=== PATIENT | male | born 1975 | race Caucasian/White ===

== ENCOUNTER 2017-09-13 21:04 | Emergency (ER) | payer BC ==
[~2017-09-13] VITALS: Ht 180.3 cm; Wt 97.3 kg
[~2017-09-13 21:04] MED LIST: BUPR-83 PO; LAMO200T35 PO; SERT-234 PO
[2017-09-13 21:11] VITALS: TEMP 36.3; Ht 180.3 cm; Wt 97.3 kg
[2017-09-13] MEDS ORDERED: DIPHTHERIA/TETANUS/PERTUSSIS 0.5 ML SYR/VIAL IM. ONE (21:30)
[2017-09-13] MEDS ORDERED: AMOXICIL/CLAVU 875MG HOME PACK PO ONE (21:30)
[2017-09-13] MEDS ORDERED: AMOX875T PO (21:56)
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
[2017-09-13 22:04] VITALS: BP 122/57; PULSE 70; O2SAT 97
== END 2017-09-13 22:06 | disposition home or self-care (01) ==
LOC: C.EDB 21:05 → C.EDC 22:06
DX: S61.252A Open bite of right middle finger without damage to nail, initial encounter (principal); W55.01XA Bitten by cat, initial encounter; Z23 Encounter for immunization

== ENCOUNTER 2019-06-18 18:43 | Observation (INO) ==
[2019-06-18] MEDS ORDERED: diazePAM 5 MG TABLET PO ONE (19:17)
[2019-06-18] MEDS ORDERED: DEXAMETHASONE **PF** INJ 10 MG/ML VIAL IV ONE (19:17)
[2019-06-18] MEDS ORDERED: ACETAMINOPHEN 1,000 MG/100 ML VIAL IV STA (19:17)
[2019-06-18] MEDS ORDERED: KETOROLAC TROMETHAMINE 15 MG/ML VIAL IV STA (19:17)
[2019-06-18] MEDS ORDERED: SODIUM CHLORIDE 0.9% 1000ML 1,000 ML IV ONE (19:17)
[2019-06-18] MEDS ORDERED: MoRPHine SULFATE 10 MG/ML CARP/VIAL IV STA (20:10)
--- NOTE | 2019-06-18 21:01 | Emergency Department Note ---
Entered by Neelam Trivedi acting as a scribe for History of Present Illness General Chief complaint: Back Injury/Pain Stated complaint: BACK PAIN Time Seen by Provider: 06/18/19 18:47 Source: patient History of Present Illness Onset (ago): hour(s) (2.5) Location: back Pain Consistency: + other (episode) Maximum Pain Intensity: 10 Relieved By: + rest (right leg straight, left leg bent) and + other (Fentanyl); not by medication (Tramadol) Exacerbated By: + movement Associated symptoms: + denies other symptoms (numbness, tingling, urinary retention, bowel incontinence) The patient is a 43 year old male who presents to the Emergency Room with complaints of an episode of a back injury occurring 2.5 hours ago. The patient states that he was out picking up wood when he bent down and started having extreme pain in his mid to lower back. He states that he tried to stand up, but wasnt able to. He states that he instead had to lay on the ground and wait for the ambulance to come. He reports that he took a Tramadol that he had for his history of migraines with no relief. He states that the ambulance then gave him Fentanyl which offered mild relief. The patient notes that moving his legs makes the pain worse. He notes that lying with his right leg straight and left leg bent is the only place he is semi comfortable. The patient denies numbness, tingling, urinary retention, and bowel incontinence. Home Medications Home Medications Medication Instructions Recorded Confirmed Type No Known Home Medications 06/18/19 06/18/19 History Allergies Allergy/AdvReac Type Severity Reaction Status Date / Time No Known Allergies Allergy Verified 06/18/19 19:27 Past Med/Surg History Medical History Hx of migraines Family History Other No significant family history Social History Preferred Language: Persian Communication Ability: Effective Sonoscope Operator Required: No Beliefs That Will Affect Care: None marital status: Current Living Situation: Family current occupational status: employed Other Information That Helps Us Care for You: No Feels Safe at Home: Yes Safety Concerns: Feels Safe At This Time Smoking Status: Never smoker Hx Alcohol Use: No Hx Substance Use: No Review of Systems See HPI for pertinent positives & negatives. and A total of 10 systems reviewed and were otherwise negative Physical Exam Vital Signs Vital Signs - 24 hr 06/18/19 19:01 06/18/19 20:22 Temperature 36.5 C Temperature Source Oral Sepsis Recent Fever Within 48 Hours No Sepsis Action Taken by Nursing No Action Required Pulse Rate 74 Pulse Rate [Right Finger] 75 Pulse Rhythm Regular Pulse Rhythm [Right Finger] Regular Pulse Strength Normal Pulse Strength [Right Finger] Normal Respiratory Rate 16 16 Respiratory Effort / Characteristics Non-Labored Non-Labored Respiratory Depth Normal Normal Respiratory Pattern Regular Regular Blood Pressure 138/69 Blood Pressure [Right Arm] 125/66 Blood Pressure Mean 92 Blood Pressure Mean [Right Arm] 85 Blood Pressure Position Lying Blood Pressure Position [Right Arm] Lying Pulse Oximetry 98 97 Oxygen Delivery Method Room Air Room Air GENERAL: Awake, alert, uncomfortable appearing, in no distress HENT: Normocephalic, atraumatic. Oropharynx with dry mucous membranes and ot herwise unremarkable. EYES: Normal conjunctiva. Sclera non-icteric. NECK: Supple. No nuchal rigidity. FROM. No JVD. RESPIRATORY: Clear to auscultation bilaterally. CARDIAC: Regular rate, normal rhythm. Extremities warm and well perfused. Pulses equal. ABDOMEN: Soft, non-distended. No tenderness to palpation. No rebound or guarding. No masses. RECTAL: Deferred. MUSCULOSKELETAL: Chest examination reveals no tenderness. The back is symmetrical on inspection without obvious abnormality. Mild discomfort of the right lower lumbar region with palpable spasm. There is no CVA tenderness to palpation. No joint edema. LOWER EXTREMITIES: Calves are equal size bilaterally and non-tender. No edema. No discoloration. NEURO: Normal sensorium. No sensory or motor deficits noted. 5/5 strength and SILT x4 extremities. L5 intact bilaterally. Reflexes normal. No clonus. SKIN: No rash or jaundice noted. Course 185: Past medical records reviewed. The patient was evaluated in room A12B. A complete history and physical exam was performed by the medical student, Donta Hoffman. 1905: Past medical records reviewed. The patient was evaluated in room A12B. A complete history and physical exam was performed by me. 2009: I reevaluated the patient and he is not improved at all. We are going to try Morphine. 2040: I reevaluated the patient and he is not feeling any better. I discussed the test results and the treatment plan with him. He verbally agrees and understands. 2048: I discussed the patient's case with [facility]. He will evaluate the patient for further management, Consultations Consultation #1: I discussed the patient's case with Dr. Jeff Bower. He will evaluate the patient for further management, Time: 20:49 Administered Medications Gadobutrol (Gadavist 65ml) 9.4 ml IV ONCE PRN PRN Reason: Interaction Checking Stop: 06/22/19 23:42 Last Admin: 06/18/19 23:21 Dose: 9.4 ml Documented by: [id number] Hydromorphone HCl (Dilaudid) 1 mg IV Q3H PRN PRN Reason: Pain Stop: 07/02/19 23:56 Last Admin: 06/19/19 00:12 Dose: 1 mg Documented by: [id number] Sodium Chloride (Nss 1000ml) 1,000 mls @ 80 mls/hr IV .[id number] JULIO Stop: 06/19/19 11:00 Last Admin: 06/19/19 00:06 Dose: 80 mls/hr Documented by: [id number] Discontinued Medications Dexamethasone Sodium Phosphate (Decadron Pf) 10 mg IV NOW ONE Stop: 06/18/19 19:18 Last Admin: 06/18/19 19:23 Dose: 10 mg Documented by: [id number] Diazepam (Valium) 5 mg PO NOW ONE Stop: 06/18/19 19:18 Last Admin: 06/18/19 19:23 Dose: 5 mg Documented by: [id number] Acetaminophen (Ofirmev) 1,000 mg in 100 mls @ 400 mls/hr IV NOW STA Stop: 06/18/19 19:31 Last Infusion: 06/18/19 20:01 Dose: 0 mls/hr Documented by: [id number] Admin: 06/18/19 19:23 Dose: 400 mls/hr Documented by: [id number] Sodium Chloride (Nss 1000ml) 1,000 mls @ 999 mls/hr IV .Q1H1M ONE Stop: 06/18/19 20:17 Last Infusion: 06/18/19 20:51 Dose: 0 mls/hr Documented by: [id number] Admin: 06/18/19 19:24 Dose: 999 mls/hr Documented by: [id number] Ketorolac Tromethamine (Toradol) 15 mg IV NOW STA Stop: 06/18/19 19:18 Last Admin: 06/18/19 19:23 Dose: 15 mg Documented by: [id number] Morphine Sulfate (Morphine Sulfate) 8 mg IV NOW STA Stop: 06/18/19 20:11 Last Admin: 06/18/19 20:20 Dose: 8 mg Documented by: [id number] Medical Decision Making Differential Diagnosis Differential diagnosis: Etiologies such as muscular strain, fracture, metastatic disease, disc herniation, sciatica, epidural abscess, vertebral osteomyelitis, discitis, spinal epidural hematoma, cord compression, cauda equina/conus medullaris syndrome, aortic disease, infection, shingles, renal colic, gastrointestinal, acute exacerbation of chronic back pain, as well as others were entertained. Medical Records Attestation: I reviewed the patient's medical records. Home Medications Current Medication List: was personally reviewed by me Laboratory Data Attestation: I reviewed the patient's lab results. Result diagrams: 06/18/19 21:03 06/18/19 21:03 Lab Results 06/18/19 06/18/19 Range/Units 21:03 21:03 WBC 9.90 (4.8-10.8) K/uL RBC 4.69 L (4.7-6.1) M/uL Hgb 13.6 L (14.0-18.0) g/dL Hct 40.3 L (42-52) % MCV 85.9 (80-100) fL MCH 29.0 (25-34) pg MCHC 33.7 (32-36) g/dL RDW Std Deviation 42.1 (36.4-46.3) fL RDW Coeff of [place]ib[place] 13.4 (11.5-14.5) % Plt Count 230 (130-400) K/uL MPV 9.5 (7.4-10.4) fL Immature Gran % (Auto) 0.2 % Neut % (Auto) 83.8 % Lymph % (Auto) 12.0 % [place] % (Auto) 3.5 % Eos % (Auto) 0.2 % Baso % (Auto) 0.3 % Immature Gran # (Auto) 0.02 (0.00-0.02) K/uL Neut # (Auto) 8.29 H (1.4-6.5) K/uL Lymph # (Auto) 1.19 L (1.2-3.4) K/uL [place] # (Auto) 0.35 (0.11-0.59) K/uL Eos # (Auto) 0.02 (0-0.5) K/uL Baso # (Auto) 0.03 (0-0.2) K/uL Sodium 141 (136-145) mmol/L Potassium 3.8 (3.5-5.1) mmol/L Chloride 111 H (98-107) mmol/L Carbon Dioxide 24 (21-32) mmol/L Anion Gap 6.0 (3-11) BUN 20 H (7-18) mg/dl Creatinine 1.16 (0.6-1.4) mg/dl Est Cr Clr Drug Dosing 99.2 ml/min Est GFR ( Amer) 89.5 Est GFR (Non-Af Amer) 77.2 BUN/Creatinine Ratio 17.4 (10-20) Glucose 108 H (70-99) mg/dl Calcium 8.5 (8.5-10.1) mg/dl Total Bilirubin 0.5 (0.2-1) mg/dl AST 16 (15-37) U/L ALT 21 (12-78) U/L Alkaline Phosphatase 61 (45-117) U/L Total Protein 6.7 (6.4-8.2) gm/dl Albumin 3.7 (3.4-5.0) gm/dl Globulin 3.0 (2.5-4.0) gm/dl Albumin/Globulin Ratio 1.2 (0.9-2) Imaging Data Radiologist's Impression: MRI ordered and pending. Blood Pressure Blood Pressure Findings: Elevated blood pressure Blood Pressure Disposition: elevated BP felt to be situational MDM Narrative The patient is a pleasant 43-year-old gentleman who is previously healthy who presents emergency department with acute onset right lumbar pain while he was chopping wood and bent down when he suddenly felt his acute pain and fell to the ground per hpi. Of note, patient reports a similar episode approximately 20 years ago with a herniated disc b but he reports he has not had any issues since then. He denies any medical problems or regular medications. On arrival patient is uncomfortable but no acute distress, afebrile stable vital signs. Patient reports some improvement after Toradol and fentanyl by EMS but then pain did return. On exam the patient has mild discomfort in the right lumbar region with palpable muscle spasm. Otherwise he has 5/5 strength in bilateral lower extremities with L5 intact bilaterally and SILT. He has normal reflexes and no clonus. There is no saddle anesthesia. Patient was provided with IV fluids, IV Tylenol, Toradol, dexamethasone and Valium which he reports had no effect. We subsequently gave him 8 mg of IV morphine which he also reported had minimal effect. The patient does not have any clinical evidence of cord compression at this time given his refractory/intractable nontraumatic pain will order MRI for further characterization however he will require admission for pain control. MRI ordered and is pending. Additionally, basic blood work also ordered and pending. Case was discussed with Dr. Welch, [facility] hospitalist, who will evaluate the patient for admission. Impression & Plan Lumbar strain, Intractable low back pain Discharge Plan Visit Data *Final* Discharge Date/Time: 06/18/19 23:10 Chief Complaint: Back Injury/Pain Stated Complaint: BACK PAIN ED Provider: Castro Gunter Discharge Problem: Lumbar strain, Intractable low back pain Patient Disposition: Admitted As Inpatient Discharge Instructions Interventions: ED Discharge Assessment Last Done: 06/18/19 23:10 Discharge Problem: Lumbar strain Qualifiers: Encounter type: initial encounter Qualified Code(s): S39.012A - Strain of muscle, fascia and tendon of lower back, initial encounter The scribe's documentation has been prepared under my direction and personally reviewed by me in its entirety. I confirm that the note above accurately reflects all work, treatment, procedures, and medical decision making performed by me.
[2019-06-18 21:16] LABS: Basophils # (auto) 0.03 K/uL (0-0.2); Basophils % (auto) 0.3 %; Eosinophils # (auto) 0.02 K/uL (0-0.5); Eosinophils % (auto) 0.2 %; Hematocrit (blood only) 40.3 % (42-52); Hemoglobin 13.6 g/dL (14.0-18.0); Immature Granulocytes # (auto) 0.02 K/uL (0.00-0.02); Immature Granulocytes % (auto) 0.2 %; Lymphocytes # (auto) 1.19 K/uL (1.2-3.4); Mean Corpuscular Hgb Conc 33.7 g/dL (32-36); Mean Corpuscular Volume 85.9 fL (80-100); Mean Platelet Volume 9.5 fL (7.4-10.4); Monocytes # (auto) 0.35 K/uL (0.11-0.59); Monocytes % (auto) 3.5 %; Neutrophils # (auto) 8.29 K/uL (1.4-6.5); Neutrophils % (auto) 83.8 %; Platelet Count 230 K/uL (130-400); RDW Coefficient of Variation 13.4 % (11.5-14.5); RDW Standard Deviation 42.1 fL (36.4-46.3); Red Blood Count 4.69 M/uL (4.7-6.1)
[2019-06-18 21:31] LABS: Albumin Level 3.7 gm/dl (3.4-5.0); BUN Creatinine Ratio 17.4 (10-20); Calcium 8.5 mg/dl (8.5-10.1); Creatinine Clr Calc Pharmacy 99.2 ml/min; Est GFR (African American) 89.5; Est GFR (Non-African American) 77.2; Potassium 3.8 mmol/L (3.5-5.1)
[2019-06-18 21:34] LABS: Albumin Globulin Ratio 1.2 (0.9-2); Bilirubin,Total 0.5 mg/dl (0.2-1); Total Protein 6.7 gm/dl (6.4-8.2)
--- NOTE | 2019-06-18 22:32 | XRay Report ---
ORBIT RADIOGRAPHS 3 VIEWS HISTORY: pre-MRI screening. COMPARISON: None. FINDINGS: There are no radiopaque foreign bodies identified within the orbits. IMPRESSION: No radiopaque foreign bodies identified within the orbits. Electronically signed by: Ricky Short M.D. 06/18/2019 10:31 PM
--- NOTE | 2019-06-18 23:32 | History and Physical Report ---
DATE OF ADMISSION: 06/18/2019 CHIEF COMPLAINT: Severe back pain. HISTORY OF PRESENT ILLNESS: This is a 43-year-old male with past medical history significant for obstructive sleep apnea, not able to tolerate the mask, chronic rhinitis, irritable bowel syndrome, aerophagia, lumbosacral degenerative disc disease, temporomandibular joint disorder, history of chronic otitis externa, migraine, depression, anxiety, narcolepsy, currently not on any medications, presents with severe back pain. The patient was stacking the hillman when he slipped and fell backwards and had severe back pain and took tramadol, it did not help. Could not get up since then. EMS was called in and en route was given Toradol. In the ER also, he was given another dose of Toradol, but had significant pain. He was given IV Tylenol and 8 mg of morphine and Valium and dexamethasone 1 dose, does not improve much of his pain. He is able to move his left lower extremity, but having difficulty moving his right lower extremity. He micturated in the ER ok. No incontinence. Moved his bowels in the morning. Otherwise, he is healthy. He is able to walk and climb steps okay. Currently resting comfortable. Currently hemodynamically stable. Denies any headache. Denies any dizziness, no blurred visions, no earache, no runny nose, no sore throat, no difficulty swallowing. Appetite is okay. Sleeps okay. No chest pain, no shortness of breath, no cough, no fever, no chills, no nausea, no vomiting, no abdominal pain. No swelling in the legs, no rash. ALLERGIES: No known drug allergies. PAST MEDICAL HISTORY: As mentioned above. PAST SURGICAL HISTORY: Colonoscopy, EGDs with biopsy. MEDICATIONS: None currently. FAMILY HISTORY: Significant for mother had lung disorder, father had neurological disorder. SOCIAL HISTORY: . No smoking. Alcohol rarely. No drug use. REVIEW OF SYSTEMS: As per HPI. Rest of the review of systems negative. PHYSICAL EXAMINATION: GENERAL: The patient is of moderate build, not in acute distress. VITAL SIGNS: Temperature 36.5, pulse 75, respiratory rate 16, blood pressure 125/66, oxygen 97% on room air. HEENT: No pallor, no icterus. Pupils equal, round, and reactive to light. NECK: No JVD, no neck masses, no carotid bruits. CARDIOVASCULAR: S1, S2 heard, regular rate and rhythm, no murmur, no gallop. RESPIRATORY SYSTEM: Normal AP diameter. No accessory muscle use. No wheezing, no crackles. ABDOMEN: Soft, bowel sounds present, nontender. No distention. CENTRAL NERVOUS SYSTEM: Alert and oriented. Speech is clear. Strength 5/5 in upper extremities. Painful movements of the lower extremities. Sensation is intact in the lower extremities and upper extremities. EXTREMITIES: Painful movements of the lower extremity on the right side. MUSCULOSKELETAL: SLR test is positive on the left lower extremity, did not do right lower extremity as the patient is already having pain on movement on that extremity. LABORATORY DATA: WBC 9, hemoglobin 13.6, hematocrit 40.3, platelets 230. Sodium 141, potassium 3.8, chloride 111, bicarbonate 24, BUN 20, creatinine 1.16, serum glucose 108, calcium 8.5, total bilirubin 0.5, AST 16, ALT 21, alkaline phosphatase 61. ASSESSMENT AND PLAN: This is a 43-year-old male who presents with severe back pain. 1. Severe back pain status post mechanical fall while stacking his hillman. He received dexamethasone and significant pain medication in the ER. Still had painful movements. ER ordered a stat MRI. We will follow the MRI results. We placed him on IV Dilaudid p.r.n., gentle fluids. Monitor on the medical floor. Based on the MRI results, further plan. Sensation is intact in the lower extremity. There is no incontinence. Able to move his extremities though they are painful. 2. History of obstructive sleep apnea and narcolepsy, not able to tolerate the mask. Follows with sleep studies. 3. Deep venous thrombosis prophylaxis, sequential compression devices for now. 4. Disposition: Observation in medical floor. PT and OT prior to discharge. Social Service to help with discharge planning. [place]O
[2019-06-18] MEDS ORDERED: GADOBUTROL 65ML VIAL IV PRN (23:43)
[2019-06-18] MEDS ORDERED: ONDANSETRON INJ 2 MG/ML 2 ML VIAL IV PRN (23:57)
[2019-06-18] MEDS ORDERED: ACETAMINOPHEN 325 MG TAB PO PRN (23:57)
[2019-06-18] MEDS ORDERED: POLYETHYLENE (MIRALAX) 17 GM PACK PO PRN (23:57)
[2019-06-18] MEDS ORDERED: SODIUM CHLORIDE 0.9% 1000ML 1,000 ML IV SCH (23:57)
[2019-06-19] MEDS: HYDROmorphone INJ 1 MG/ML SYRINGE IV PRN ×2 (00:12→05:59)
--- NOTE | 2019-06-19 05:22 | Magnetic Resonance Report ---
MR lumbar spine wo/w con CLINICAL HISTORY: 43 years-old Male presenting with Lumbar back pain, recent injury spleen would, now with stabbing back pain, pain with right leg movement. TECHNIQUE: Multisequence, multiplanar MR imaging of the lumbar spine was performed before and after t he administration of intravenous contrast. IV contrast: 9.4 mL of Gadavist. COMPARISON: Plain radiographs from 09/27/2012. FINDINGS: Localizer images: Unremarkable. Slight straightening of normal lumbar lordosis. Alignment is unchanged from prior radiographs. Mild b aicha edema at the superior endplate of L3 anteriorly, likely degenerative in etiology (Modic type I). Vertebral bodies otherwise to straighten normal height, alignment, and bone marrow signal intensity. Mildly exaggerated endplate cavity unchanged since prior radiographs. Mild multilevel intervertebral disc desiccation. Additional multilevel degenerative changes as detailed below: L1-2: No significant neural foraminal or spinal canal narrowing. L2-3: Mild disc bulge with mild effacement of the ventral thecal sac and lateral recesses. Minimal bi lateral neural foraminal narrowing. L3-4: No significant spinal canal narrowing. Eccentric disc bulge results in minimal bilateral neural foraminal narrowing. L4-5: Annular fissure and paracentral disc extrusion. Moderate effacement of the ventral thecal sac a nd mild effacement of the lateral recesses, left greater than right. Abutment of the transiting L5 ne rve roots. Moderate bilateral neural foraminal narrowing. Mass effect on the exiting left L4 nerve ro ot suspected. L5-S1: Annular fissure and disc protrusion with mild effacement of the right paracentral thecal sac a nd sheath of the transiting right S1 nerve. Mild to moderate right neural foraminal narrowing. Spinal cord terminates in good position at T12. Cauda equina normal in morphology. No abnormal enhanc ement of the nerve roots. No epidural collection. No paraspinal muscle edema. Visualized portion of t he sacrum normal. Trace enhancement along the bony edema in the superior endplate of L3. Flow voids w ithin the vasculature preserved. Remaining visualized soft tissues within normal limits. IMPRESSION: 1. Multilevel degenerative changes in the lower lumbar spine with annular fissures and disc protrusi ons. Mass effect on the exiting left L4 nerve root suspected. Additional abutment of transiting nerve roots as above. Neural foraminal narrowing most significant at L4-5. No evidence of cauda equina imp ingement. 2. No acute osseous injury. Electronically signed by: Al Wilson M.D. 06/19/2019 5:19 AM
[2019-06-19 06:49] LABS: Basophils # (auto) 0.01 K/uL (0-0.2); Basophils % (auto) 0.1 %; Hemoglobin 13.8 g/dL (14.0-18.0); Immature Granulocytes # (auto) 0.02 K/uL (0.00-0.02); Immature Granulocytes % (auto) 0.2 %; Lymphocytes # (auto) 0.73 K/uL (1.2-3.4); Mean Corpuscular Hemoglobin 28.8 pg (25-34); Mean Corpuscular Hgb Conc 33.7 g/dL (32-36); Mean Corpuscular Volume 85.6 fL (80-100); Mean Platelet Volume 9.8 fL (7.4-10.4); Monocytes # (auto) 0.23 K/uL (0.11-0.59); Monocytes % (auto) 2.2 %; Neutrophils # (auto) 9.48 K/uL (1.4-6.5); Neutrophils % (auto) 90.5 %; Platelet Count 244 K/uL (130-400); RDW Coefficient of Variation 13.3 % (11.5-14.5); RDW Standard Deviation 41.6 fL (36.4-46.3); Red Blood Count 4.79 M/uL (4.7-6.1); White Blood Count 10.47 K/uL (4.8-10.8)
[2019-06-19] MEDS ORDERED: KETOROLAC 30 MG/ML VIAL IV PRN (06:54)
--- NOTE | 2019-06-19 07:00 | Hospitalist Progress Note ---
Date of Service June 19, 2019 Assessment & Plan (1) Lumbar strain: (2) Intractable low back pain: MRI Noted, No Radicular symptoms, PT/OT, DC home on ATC Tylenol and Motrin c OXY IR for breakthrough pain, RTW 06/27, DC home later today or in am ROS-No Headache, No Visual Changes, No Nausea, No Vomiting, No Fever, No Chills, No Neck Pain or Stiffness, No Chest Pain, No Palpitations, No SOB, No ERWIN, No Cough, No Sputum, No Wheezing, No Abdominal Pain, No Diarrhea, No Hematemesis, No Hemoptysis, No Unexpected Weight Loss, No Flank pain, No Melena, No Hematochezia, No Frequency, No Urgency, No Burning, No Hematuria, No Rashes, No Diaphoresis. Appetite is Normal, +R.L LBP, No radicular s/s Physical Exam Gen-AAO x 3, NAD, Afebrile Head-NCAT, EOMI, PERRLA, Anicteric Sclera, No Posterior Pharyngeal Erythema Neck-Supple, No JVD, No Thyromegaly, No Masses, No LAD, No Bruits Lungs-Clear to Auscultation Bilaterally, No Rales, No Rhonchi, No Wheezing, No Crepitus Chest-No S4, +S1, +S2, No S3, No Murmurs, No Rubs, No Gallops, No Ectopy Abdomen-Soft, Bowel Sounds Present, Non Tender, Non Distended, No Hepatomegaly, No Splenomegaly, No Palpable Masses, No Rebound, No Rigidity, No Guarding Musculoskeletal-Dec Range of Motion RLE sec to LBP, No CVAT Extremities-No Cyanosis, No Clubbing, No Edema Nuero-Cranial Nerves II-XII grossly intact, Motor WNL, DTRs WNL, Strength WNL, Non Focal Psych-Normal Mood Results & Data Vital Signs (Past 12 Hours) Vital Signs Temp Pulse Pulse Resp BP BP Pulse Ox 06/19/19 00:16 36.4 C L 74 18 127/71 96 06/18/19 20:22 75 16 125/66 97 06/18/19 19:01 36.5 C 74 16 138/69 98 Allergies No Known Allergies Allergy (Verified 06/18/19 19:27) Height/Weight/Isolation Height 6 ft Weight 95 kg Chemistry 06/18/19 21:03 Sodium 141 Potassium 3.8 Chloride 111 H Carbon Dioxide 24 Anion Gap 6.0 BUN 20 H Creatinine 1.16 Glucose 108 H MRI L Spine-IMPRESSION: 1. Multilevel degenerative changes in the lower lumbar spine with annular fissures and disc protrusions. Mass effect on the exiting left L4 nerve root suspected. Additional abutment of transiting nerve roots as above. Neural foraminal narrowing most significant at L4-5. No evidence of cauda equina impingement. 2. No acute osseous injury. (1) Lumbar strain Encounter type: initial encounter Qualified Code(s): S39.012A - Strain of muscle, fascia and tendon of lower back, initial encounter
[2019-06-19 07:21] LABS: BUN Creatinine Ratio 19.7 (10-20); Calcium 8.8 mg/dl (8.5-10.1); Creatinine Clr Calc Pharmacy 108.6 ml/min; Est GFR (African American) 99.8; Est GFR (Non-African American) 86.1; Magnesium 2.1 mg/dl (1.8-2.4); Potassium 4.1 mmol/L (3.5-5.1)
[2019-06-19] MEDS: ACETAMINOPHEN 500 MG TAB PO SCH ×2 (08:24→12:00)
[2019-06-19] MEDS: OXYCODONE HCL IR 5 MG TAB (IMMEDIATE RELEASE) PO PRN ×2 (12:06→15:48)
--- NOTE | 2019-06-19 15:22 | Discharge Summary ---
Date of Service June 19, 2019 Admission HPI Per Admitting Provider 43-year-old male with past medical history significant for obstructive sleep apnea, not able to tolerate the mask, chronic rhinitis, irritable bowel syndrome, aerophagia, lumbosacral degenerative disc disease, temporomandibular joint disorder, history of chronic otitis externa, migraine, depression, anxiety, narcolepsy, currently not on any medications, presents with severe back pain. The patient was stacking the hillman when he slipped and fell backwards and had severe back pain and took tramadol, it did not help. Could not get up since then. EMS was called in and en route was given Toradol. In the ER also, he was given another dose of Toradol, but had significant pain. He was given IV Tylenol and 8 mg of morphine and Valium and dexamethasone 1 dose, does not improve much of his pain. He is able to move his left lower extremity, but having difficulty moving his right lower extremity. He micturated in the ER ok. No incontinence. Moved his bowels in the morning. Otherwise, he is healthy. He is able to walk and climb steps okay. Currently resting comfortable. Currently hemodynamically stable. Denies any headache. Denies any dizziness, no blurred visions, no earache, no runny nose, no sore throat, no difficulty swallowing. Appetite is okay. Sleeps okay. No chest pain, no shortness of breath, no cough, no fever, no chills, no nausea, no vomiting, no abdominal pain. No swelling in the legs, no rash. Admission Exam Per Admitting Provider PHYSICAL EXAMINATION: GENERAL: The patient is of moderate build, not in acute distress. VITAL SIGNS: Temperature 36.5, pulse 75, respiratory rate 16, blood pressure 125/66, oxygen 97% on room air. HEENT: No pallor, no icterus. Pupils equal, round, and reactive to light. NECK: No JVD, no neck masses, no carotid bruits. CARDIOVASCULAR: S1, S2 heard, regular rate and rhythm, no murmur, no gallop. RESPIRATORY SYSTEM: Normal AP diameter. No accessory muscle use. No wheezing, no crackles. ABDOMEN: Soft, bowel sounds present, nontender. No distention. CENTRAL NERVOUS SYSTEM: Alert and oriented. Speech is clear. Strength 5/5 in upper extremities. Painful movements of the lower extremities. Sensation is intact in the lower extremities and upper extremities. EXTREMITIES: Painful movements of the lower extremity on the right side. MUSCULOSKELETAL: SLR test is positive on the left lower extremity, did not do right lower extremity as the patient is already having pain on movement on that extremity. Principal Diagnosis Low Back Pain Lumbar Sprain/Strain Discharge Exam Physical Exam Gen-AAO x 3, NAD, Afebrile Head-NCAT, EOMI, PERRLA, Anicteric Sclera, No Posterior Pharyngeal Erythema Neck-Supple, No JVD, No Thyromegaly, No Masses, No LAD, No Bruits Lungs-Clear to Auscultation Bilaterally, No Rales, No Rhonchi, No Wheezing, No Crepitus Chest-No S4, +S1, +S2, No S3, No Murmurs, No Rubs, No Gallops, No Ectopy Abdomen-Soft, Bowel Sounds Present, Non Tender, Non Distended, No Hepatomegaly, No Splenomegaly, No Palpable Masses, No Rebound, No Rigidity, No Guarding Musculoskeletal-Dec Range of Motion RLE sec to LBP, No CVAT Extremities-No Cyanosis, No Clubbing, No Edema Nuero-Cranial Nerves II-XII grossly intact, Motor WNL, DTRs WNL, Strength WNL, Non Focal Psych-Normal Mood Discharge Data Allergies Allergy/AdvReac Type Severity Reaction Status Date / Time No Known Allergies Allergy Verified 06/18/19 19:27 Consultations 06/18/19 20:46 ED Decision to Admit Stat Ordered Studies 06/18/19 20:46 MR lumbar spine wo/w con Urgent Current Diagnoses Low back pain (06/18/19) Strain of muscle, fascia and tendon of lower back, initial encounter (06/18/19) Allergies No Known Allergies Allergy (Verified 06/18/19 19:27) Height/Weight/Isolation Height 6 ft Weight 95 kg Chemistry 06/18/19 06/19/19 21:03 05:50 Sodium 141 140 Potassium 3.8 4.1 Chloride 111 H 109 H Carbon Dioxide 24 24 Anion Gap 6.0 7.0 BUN 20 H 21 H Creatinine 1.16 1.06 Glucose 108 H 152 H Hospital Course (1) Lumbar strain: (2) Intractable low back pain: MRI Noted, No Radicular symptoms, PT/OT, DC home on ATC Tylenol and Motrin c OXY IR for breakthrough pain, RTW 06/27, Total Time Total Time Spent Total Time Spent (In Minutes): 45 mins Total Time Includes: Examination of the Patient, Discharge Planning, Medication Reconciliation and Communication With Other Providers Discharge Plan Discharge Items Patient Disposition: Home - Self-Care Reason For Visit: SEVERE BACK PAIN Discharge Diagnosis: Low back pain Lumbar Strain/Sprain Condition on Discharge: Good Activity: Resume your previous activity Activity Comment: increase activity as tolerated Lifting: Gradually increase as tolerated Bathing: No limitations Sexual Activity: When tolerated Exercise/Sports: Gradually increase as tolerated Driving/Machine Use: No limitations Weightbearing: Full weightbearing Non-emergency contact: Primary Care Provider Call non-emergency contact if: you have any medication questions Follow-up/Referrals: Azra Crandall PA-C [Primary Care Provider] - (follow up as needed) Diet: Regular Addtl Attending Provider Instructions: Symptom control for LBP Pending Studies at Discharge: No Stand-Alone Forms: My [employer], Opioid Pain Management, Work/School Release (Inpt) Medications and DC Order Prescriptions: New acetaminophen [Mapap (acetaminophen)] 325 mg Tablet 500 mg PO Q4HWA Qty: 90 RF: 0 oxycodone 5 mg Tablet 5 mg PO Q4H PRN (Reason: pain) Qty: 30 RF: 0 ibuprofen 400 mg tablet 400 mg PO .[id number] Qty: 90 RF: 0 No Action No Known Home Medications RF: 0 Discharge Orders: Discharge Order (Routine); Ordered 06/19/19 Ordered By: Souleymane Quintero Admission Data Admit Date/Time: 06/18/19 21:31 Attending Provider: Souleymane Quintero Admit Provider: Blaze Welch Primary Care Provider: Azra Crandall Other Providers: Blaze Welch
== END 2019-06-19 16:00 | disposition home or self-care (01) ==
LOC: ED 18:43 → 2N 18:43 → 4W 06-19 07:45